=== PATIENT | female | born 1995 | race Caucasian/White ===

== ENCOUNTER 2019-01-02 16:15 | Outpatient (CLI) | payer OTHER ==
[~2019-01-02] VITALS: Ht 160 cm; Wt 63.8 kg
[2019-01-02 16:25] VITALS: Ht 160 cm; Wt 63.8 kg
--- NOTE | 2019-01-02 18:17 | PN ---
Triage Information Date/Time Subjective: 23 year-old G1 at 37.3 weeks gestation presents with complaints of contractions. Objective: Vitals: 123/60 General: No apparent distress Abdomen: Gravid SVE: 50/-2 by RN BPP 02/02 Assessment/Plan: 1. contractions-if exam unchanged, patient may be discharged to home Reason for visit: Uterine contractions Weeks of Gestation 37.3 /Para 1 MILESTONE,DANIELA FONTENOT Jan 02, 2019 18:17
--- NOTE | 2019-01-02 18:20 | TRIAGE ---
OB Triage Datetime Report Generated by CPN: 01/02/2019 18:20 Datetime: 01/02/2019 18:14 Stage of : OB Triage Maternal Assessment Level of Consciousness: Keenly Alert, Responsive DTR's/Clonus: DTRs 1+ Headache: Denies Breath Sounds, Left: Clear and Equal Breath Sounds, Right: Clear and Equal Nausea/Vomiting: Denies RUQ Epigastric Pain: Denies Monitor Mode: External Pattern: Normal: <= 5 Contractions in 10 Minutes Resting Tone [place]: Relaxed Heart Rate FHR Baseline Rate: 125 Monitor Mode: External US Variability: Moderate 6-25 bpm Accelerations: 15X15 Decelerations: None Category: Category I Pain Assessment Pain Scale: 7 Pain Presence: Intermittent Pain Type: Cramping Pain Location: Back Pain Goal: 3 Membrane Status: Intact Datetime: 01/02/2019 17:54 Vaginal Exam Dilatation (cms): 2.0 Effacement (%): 50 Station: -2 Exam By: WES EDGE Vaginal Bleeding: None Cervix, Consistency: Soft Cervix, Position: Posterior Presentation 'A': Cephalic Datetime: 01/02/2019 17:36 Stage of : OB Triage Maternal Assessment Level of Consciousness: Keenly Alert, Responsive DTR's/Clonus: DTRs 1+ Headache: Denies Breath Sounds, Left: Clear and Equal Breath Sounds, Right: Clear and Equal Nausea/Vomiting: Denies RUQ Epigastric Pain: Denies Labor Evaluation Frequency: X2 Monitor Mode: External Duration (sec)2399: 50 Quality: Mild Pattern: Normal: <= 5 Contractions in 10 Minutes Resting Tone [place]: Relaxed Heart Rate FHR Baseline Rate: 125 Monitor Mode: External US Variability: Moderate 6-25 bpm Accelerations: 15X15 Decelerations: None Category: Category I Pain Assessment Pain Scale: 7 Pain Presence: Intermittent Pain Type: Cramping Pain Location: Back Pain Goal: 3 Membrane Status: Intact Datetime: 01/02/2019 17:29 Stage of : OB Triage Datetime: 01/02/2019 16:37 Maternal Assessment Level of Consciousness: Keenly Alert, Responsive DTR's/Clonus: DTRs 1+ Headache: Denies Blurred Vision: No Respiratory Effort: Unlabored Breath Sounds, Left: Clear and Equal Breath Sounds, Right: Clear and Equal Nausea/Vomiting: Denies RUQ Epigastric Pain: Denies Facial Edema: None Labor Evaluation Frequency: X2 Monitor Mode: External Duration (sec)2399: 50 Quality: Mild Pattern: Normal: <= 5 Contractions in 10 Minutes Resting Tone [place]: Relaxed Heart Rate FHR Baseline Rate: 125 Monitor Mode: External US Variability: Moderate 6-25 bpm Accelerations: 15X15 Decelerations: None Category: Category I Pain Assessment Pain Scale: 7 Pain Presence: Intermittent Pain Type: Cramping Pain Location: Back Pain Goal: 3 Membrane Status: Intact Datetime: 01/02/2019 16:18 Vaginal Exam Dilatation (cms): 2.0 Effacement (%): 50 Station: -2 Exam By: WES EDGE Vaginal Bleeding: None Cervix, Consistency: Soft Cervix, Position: Posterior Presentation 'A': Cephalic Datetime: 01/02/2019 16:10 Assessment Type: Triage Maternal Assessment Level of Consciousness: Keenly Alert, Responsive DTR's/Clonus: DTRs 2+; No Clonus Headache: Denies Blurred Vision: No Respiratory Effort: Unlabored; Regular Rhythm; Equal Expansion Breath Sounds, Left: Clear and Equal Breath Sounds, Right: Clear and Equal Nausea/Vomiting: Denies RUQ Epigastric Pain: Denies Lower Extremities Edema: None Degree: None Upper Extremities Edema: None Degree: None Facial Edema: None Fall Risk Assessment History of Falling: (0) No Secondary Diagnosis: (0) No Ambulatory Aid: (0) Bedrest/Nurse Assist IV Therapy: (0) No Gait: (0) Normal/Bedrest/Immobile Mental Status: (0) Oriented to Own Ability Fall Score: 0 Fall Risk Score Definition: No Risk: No action required Datetime: 01/02/2019 16:00 Time of Arrival: 01/02/2019 16:00 EGA: 37.3 Arrived By: Ambulatory Arrived From: Home Chief Complaint: PT CAME IN C/O UC'S SINCE LAST NIGHT Q 6 MIN Movement: Present Contractions: Irregular Time Contractions Began: 01/01/2019 21:00 Contractions: 6 MIN Rupture of Membranes: Denies Vaginal Discharge: Denies Recent Sexual Intercouse: Denies Abdominal Trauma: Not Applicable Additional Patient Complaints: NONE Time Provider Notified: 01/02/2019 16:27 Provider Notified: MILESTONE Initial Plan: MONITOR, VE AND BPP
== END 2019-01-02 18:15 | disposition home or self-care (01) ==
LOC: OBT 16:15 → L-D 16:16 → OBT 18:15
PROVIDERS: ATTEND Obstetrics & Gynecology
DX: O62.9 Abnormality of forces of labor, unspecified (principal); Z3A.37 37 weeks gestation of pregnancy
CPT/HCPCS: 76818

== ENCOUNTER 2019-01-13 12:52 | Outpatient (CLI) | payer OTHER ==
[~2019-01-13] VITALS: Ht 157.5 cm; Wt 62.6 kg
[2019-01-13] MEDS ORDERED: PNV11TAB PO (13:12)
[2019-01-13 13:14] VITALS: BP 109/62; PULSE 71; RESP 19; Ht 157.5 cm; Wt 62.6 kg
--- NOTE | 2019-01-13 15:21 | TRIAGE ---
OB Triage Datetime Report Generated by CPN: 01/13/2019 15:20 Datetime: 01/13/2019 14:52 Labor Evaluation Frequency: IRREGULAR Monitor Mode: External Duration (sec)2399: 50-100 Quality: Mild Pattern: Normal: <= 5 Contractions in 10 Minutes Resting Tone [place]: Relaxed Heart Rate FHR Baseline Rate: 130 Monitor Mode: External US Variability: Moderate 6-25 bpm Accelerations: 15X15 Decelerations: None Category: Category I Datetime: 01/13/2019 14:38 Vaginal Exam Dilatation (cms): 2.0 Effacement (%): 60 Station: -2 Exam By: Lucia EID Datetime: 01/13/2019 13:20 Assessment Type: Triage Maternal Assessment Level of Consciousness: Keenly Alert, Responsive DTR's/Clonus: DTRs 2+; No Clonus Headache: Denies Blurred Vision: No Respiratory Effort: Unlabored; Regular Rhythm; Equal Expansion Breath Sounds, Left: Clear and Equal Breath Sounds, Right: Clear and Equal Nausea/Vomiting: Denies RUQ Epigastric Pain: Denies Lower Extremities Edema: None Degree: None Upper Extremities Edema: None Degree: None Facial Edema: None Fall Risk Assessment History of Falling: (0) No Secondary Diagnosis: (0) No Ambulatory Aid: (0) Bedrest/Nurse Assist IV Therapy: (0) No Gait: (0) Normal/Bedrest/Immobile Mental Status: (0) Oriented to Own Ability Fall Score: 0 Fall Risk Score Definition: No Risk: No action required Datetime: 01/13/2019 13:19 Time of Arrival: 01/13/2019 12:47 EGA: 39.0 Arrived By: Ambulatory Arrived From: Home Chief Complaint: lost mucos plug Movement: Present Contractions: Irregular Rupture of Membranes: Denies Vaginal Bleeding: None Vaginal Discharge: Denies Recent Sexual Intercouse: Denies Abdominal Trauma: Not Applicable Patient Complaints: Other Time Provider Notified: 01/13/2019 14:54 Provider Notified: DR CUMMINS Initial Plan: nst bpp Datetime: 01/02/2019 16:10 Fall Score: 0 Fall Risk Score Definition: No Risk: No action required Datetime: 01/02/2019 16:00 EGA: 37.3
--- NOTE | 2019-01-13 21:42 | PN ---
Triage Information Date/Time 01/13/19 Reason for visit: Uterine contractions Weeks of Gestation 39w /Para Diabetes: none Hypertention: none Objective Vital Signs Date Temp Pulse Resp B/P (MAP) Pulse Ox O2 O2 Flow FiO2 Time Delivery Rate 01/13/19 98.4 71 19 109/62 Room Air 13:14 (78) Heart Rate: 140's Heart Rate Comments CAT I Exam VE 2cm no change from last visit Results/Medications Imaging Results BPp 02/02 BASIA 9.2 Disposition: Discharge Assessment/Plan A IUP 39w latent phase P discharge home with routine labor instructions REGINALDO CUMMINS MD Jan 13, 2019 21:42
== END 2019-01-13 15:10 | disposition home or self-care (01) ==
LOC: OBT 12:52 → L-D 12:53 → OBT 15:10
PROVIDERS: ATTEND Obstetrics & Gynecology
DX: O62.9 Abnormality of forces of labor, unspecified (principal); Z3A.39 39 weeks gestation of pregnancy
CPT/HCPCS: 76818; Z7500; G0463

== ENCOUNTER 2019-01-19 17:54 | Inpatient (IN) | payer OTHER ==
[~2019-01-19] VITALS: Ht 160 cm; Wt 62.7 kg
[~2019-01-19 17:54] MED LIST: PNV11TAB PO
[2019-01-19 18:30] VITALS: Ht 160 cm; Wt 62.7 kg
[2019-01-19 18:31] VITALS: BP 114/75; PULSE 87; RESP 19
[2019-01-19] MEDS ORDERED: LACTATED RINGER'S 1,000 ML IV PRN (22:50)
--- NOTE | 2019-01-19 22:50 | TRIAGE ---
OB Triage Datetime Report Generated by CPN: 01/19/2019 22:50 Datetime: 01/19/2019 19:00 Stage of : OB Triage Labor Evaluation Frequency: 7-8 Monitor Mode: External Duration (sec)2399: 100-120 Quality: Moderate Pattern: Normal: <= 5 Contractions in 10 Minutes Resting Tone [place]: Relaxed Heart Rate FHR Baseline Rate: 135 Monitor Mode: External US Variability: Moderate 6-25 bpm Accelerations: 15X15 Decelerations: Early Category: Category I Pain Assessment Pain Scale: 10 Pain Presence: Intermittent Pain Type: Contraction Pain Location: Abdomen Pain Relief Measures: Comfort Measures Datetime: 01/19/2019 18:37 Vaginal Exam Dilatation (cms): 3.0 Effacement (%): 80 Station: -2 Exam By: bjacobo Membrane Status: Intact Vaginal Bleeding: None Cervix, Consistency: Soft Cervix, Position: Midposition Presentation 'A': Cephalic Datetime: 01/19/2019 18:35 Assessment Type: Triage Maternal Assessment Level of Consciousness: Keenly Alert, Responsive DTR's/Clonus: DTRs 2+ Headache: Denies Blurred Vision: No Respiratory Effort: Unlabored; Regular Rhythm; Equal Expansion Breath Sounds, Left: Clear and Equal Breath Sounds, Right: Clear and Equal Nausea/Vomiting: Denies RUQ Epigastric Pain: Denies Lower Extremities Edema: None Degree: None Upper Extremities Edema: None Degree: None Facial Edema: None Fall Risk Assessment History of Falling: (0) No Secondary Diagnosis: (0) No Ambulatory Aid: (0) Bedrest/Nurse Assist IV Therapy: (0) No Gait: (0) Normal/Bedrest/Immobile Mental Status: (0) Oriented to Own Ability Fall Score: 0 Fall Risk Score Definition: No Risk: No action required Datetime: 01/19/2019 18:33 Time of Arrival: 01/19/2019 17:48 EGA: 39.6 Arrived By: Ambulatory Arrived From: Dr. Drake Movement: Present Contractions: Regular Time Contractions Began: 01/18/2019 22:00 Rupture of Membranes: Denies Vaginal Bleeding: None Vaginal Discharge: Present Recent Sexual Intercouse: Denies Abdominal Trauma: Not Applicable Patient Complaints: Contractions Time Provider Notified: 01/19/2019 22:35 Provider Notified: Dr. Alexander Initial Plan: [place], EFM, V/S, VE Datetime: 01/13/2019 13:20 Fall Score: 0 Fall Risk Score Definition: No Risk: No action required Datetime: 01/13/2019 13:19 EGA: 39.0 Datetime: 01/02/2019 16:10 Fall Score: 0 Fall Risk Score Definition: No Risk: No action required Datetime: 01/02/2019 16:00 EGA: 37.3
[2019-01-19] MEDS ORDERED: BUTORPHANOL 2 MG INJ IV PRN (23:00)
[2019-01-19] MEDS ORDERED: AMPICILLIN 2 GM/NS (PMX) 100 ML IV ONE (23:00)
[2019-01-19] MEDS ORDERED: OXYTOCIN 30 UNITS/LR 500 ML IV SCH ×3 (23:00)
[2019-01-19] MEDS ORDERED: METHYLERGONOVINE 0.2 MG INJ IM PRN (23:00)
[2019-01-19] MEDS ORDERED: LIDOCAINE 1% (MPF) 30 ML INJ INJ PRN (23:00)
[2019-01-19] MEDS ORDERED: MISOPROSTOL 200 MCG TAB PR PRN (23:00)
[2019-01-19] MEDS ORDERED: CARBOPROST 250 MCG INJ IM PRN (23:00)
[2019-01-19] MEDS ORDERED: OXYTOCIN 30 UNITS/LR 500 ML IV PRN (23:00)
[2019-01-19] MEDS ORDERED: IBUPROFEN 600 MG TAB PO PRN (23:00)
--- NOTE | 2019-01-20 00:03 | PREAC ---
Date/Time of Note Date/Time of Note DATE: 01/20/19 TIME: 00:03 Anesthesia Eval and Record Evaluation Time Pre-Procedure Interview DATE: 01/20/19 TIME: 00:03 Age 23 Sex female NPO: 8 hrs Preoperative diagnosis g1 Planned procedure labor epidural Past Medical History Past Medical History: None Surgery & Anesthesia Issues No known issue Meds Anticoagulation: No Beta Gayatri within 24 hr: No Reason Beta Gayatri not given: Pt. not on B-Gayatri Reported Medications [id number] ( 19) 1 Each Tablet, 1 TAB PO DAILY, TAB 01/13/19 Current Medications Lactated Ringer's 1,000 ml @ 125 mls/hr Q8H IV ; Start 01/19/19 at 22:50 Ampicillin 50 ml @ 100 mls/hr Q4H IV ; Start 01/20/19 at 03:00 Butorphanol Tartrate (Stadol) 2 mg Q2H PRN IV .PAIN SCALE 6-10; Start 01/19/19 at 23:00 Lidocaine (Xylocaine 1% (Mpf)) 30 ml ONCE PRN INJ .EPISIOTOMY; Start 01/19/19 at 23:00 Oxytocin/Lactated Ringer's 500 ml @ 500 mls/hr ONCE POST IV ; Start 01/19/19 at 23:00 Oxytocin/Lactated Ringer's 500 ml @ 125 mls/hr POST IV ; Start 01/19/19 at 23:00 Ibuprofen (Motrin) 600 mg ONCE PRN PO .PAIN 1-5; Start 01/19/19 at 23:00 Lactated Ringer's 1,000 ml @ 2,000 mls/hr Q30M PRN IV .ANESTHESIA; Start 01/19/19 at 22:50 Oxytocin/Lactated Ringer's 500 ml @ 0 mls/hr ONCE PRN IV .VAGINAL BLEEDING; Start 01/19/19 at 23:00 Methylergonovine Maleate (Methergine) 0.2 mg ONCE PRN IM .VAGINAL BLEEDING; Start 01/19/19 at 23:00 Carboprost Tromethamine (Hemabate) 250 mcg ONCE PRN IM .VAGINAL BLEEDING; Start 01/19/19 at 23:00 Misoprostol (Cytotec) 1,000 mcg ONCE PRN MA .VAGINAL BLEEDING; Start 7/25/19 at 23:00 Oxytocin/Lactated Ringer's 500 ml @ 0 mls/hr FOR AUGMENTATION IV ; Start 01/19/19 at 23:00 Meds reviewed: Yes Allergies Coded Allergies: No Known Allergy (Unverified , 01/19/19) Allergies Reviewed: Yes Labs/Studies Labs Reviewed: Reviewed by anesthesiologist test: Positive Pre-procedure Exam Last vitals Vital Signs Date Temp Pulse Resp B/P (MAP) Pulse Ox O2 O2 Flow FiO2 Time Delivery Rate 01/19/19 97.4 87 19 114/75 Room Air 18:31 (88) Airway: Adequate mouth opening, Adequate thyromental dist Mallampati: Mallampati II Teeth: Normal Lung: Normal Heart: Normal ASA Physical Status ASA physical status: 1 Emergency: None Planned Anesthetic Neuraxial: Epidural Pre-operative Attestations Prior to commencing anesthesia and surgery, the patient was re-evaluated, there was verification of: *The patient's identity *The results of appropriate recent lab work and preoperative vital signs *The above evaluation not changing prior to induction *Anesthetic plan, risk benefits, alternative and complications discussed with patient/family; questions answered; patient/family understands, accepts and wishes to proceed. KEKE PAK Jan 20, 2019 00:03
[2019-01-20] MEDS ORDERED: KETOROLAC 30 MG INJ IV PRN (00:30)
[2019-01-20] MEDS ORDERED: ONDANSETRON 4 MG INJ IV PRN (00:30)
[2019-01-20] MEDS ORDERED: HYDROmorphONE 0.5 MG/0.5 ML SYG IV PRN ×2 (00:30)
[2019-01-20] MEDS ORDERED: NALOXONE (0.4 MG/ML) INJ IV PRN (00:30)
[2019-01-20] MEDS ORDERED: FENTAnyl 2MCG/ML-ROPIV 0.2% 100 ML BAG EPI SCH (00:30)
[2019-01-20] MEDS ORDERED: DIPHENHYDRAMINE 50 MG INJ IV PRN (00:30)
[2019-01-20] MEDS: LACTATED RINGER'S 1,000 ML IV SCH ×3 (01:26→14:40)
[2019-01-20] MEDS ORDERED: AMPICILLIN 1 GM/NS (PMX) 50 ML IV SCH (03:00)
[2019-01-20] MEDS ORDERED: DEXTROSE 5%-LR 1,000 ML IV SCH (14:00)
[2019-01-20] MEDS ORDERED: MINERAL OIL LIGHT 10 ML VIAL TOP ONE (15:00)
--- NOTE | 2019-01-20 16:18 | HP ---
Date/Time of Note Date/Time of Note DATE: 01/20/19 TIME: 16:12 OB - History Hx of Present Free Text/Dictation 22 y.o primigravida at 40w with c/o uc's q7min apart . initial VE 380/-2 CAT I tracing. admitted for fexpectant management. Chief Complaint: uc's Estimated Due Date: Jan 20, 2019 : 1 Para: 0 Spontaneous : 0 Therapeutic : 0 Care: Other Ultrasounds: Other Obstetrical Complications: None Medical Complications: None Past Family/Social History * Past Medical, Surgical, Family and Obstetric Histories reviewed from chart. Blood Type: O+ Rubella: immune RPR/VDRL: Negative GBS Status: Negative HBsAG: Negative OB Admission Exam Vital Signs Vital Signs Vital Signs Date Temp Pulse Resp B/P (MAP) Pulse Ox O2 O2 Flow FiO2 Time Delivery Rate 01/19/19 97.4 87 19 114/75 Room Air 18:31 (88) Physical Exam Cervical Dilatation: 3cm Effacement: Other (80%) Station: -2 Membranes: Intact Amniotic Fluid: Unevaluable Heart Rate: 140's Decelerations: No Decelerations Varibility: Moderate Contractions on Admission: 6-10 Minutes Apart Intensity: Moderate Last 72 hours Lab Results CBC & BMP 01/20/19 00:15 OB Assessment/Plan Other Assessment: A IUP 40w in labor P expectant management Plan: Expectant Management REGINALDO CUMMINS MD Jan 20, 2019 16:18
--- NOTE | 2019-01-20 16:23 | QN ---
Documentation Comment called for poss ARM clear fluid already leaking VE /2 still bulging ARM ruptured clear IUPC inserted without any problem REGINALDO CUMMINS MD Jan 20, 2019 16:23
--- NOTE | 2019-01-20 19:24 | LDN ---
Date/Time of Note Date/Time of Note DATE: 01/20/19 TIME: 19:22 Delivery Summary of normal female Weeks of Gestation 40w Placenta Delivered: Spontaneously, Intact & Complete Meconium: none Episiotomy: Yes Indication for episiotomy expected laceration Perineal laceration: 0 Laceration repair: 00ch gut Anesthesia type: Epidural Estimated blood loss: 200 Sponge & Needle done & correct: Yes All needle counts correct: Yes Any foreign bodies felt in the: No Infant Delivery Information Sex Infant Sex: female Apgars 1 Minute: 9 5 Minute: 9 Suctioning Nose & mouth suctioned at ivy: Yes Delee suction performed: Yes Umbilical Cord Umbilical cord with: 3 Vessels Cord presentations: no nuchal cord Cord Blood was obtained: Yes Mother & Baby Disposition Disposition Mom & Baby to Maternity; Good: Yes Mom transferred to: Other Baby to NICU: No () REGINALDO CUMMINS MD Jan 20, 2019 19:24
[2019-01-20 20:45] VITALS: BP 133/70; PULSE 74; RESP 19
[2019-01-20] MEDS ORDERED: OXYTOCIN 30 UNITS/LR 500 ML IV PRN (21:30)
[2019-01-20] MEDS ORDERED: MISOPROSTOL 200 MCG TAB PR PRN (21:30)
[2019-01-20] MEDS ORDERED: OXYCODONE/ASPIRIN (4.88/325) TAB PO PRN ×2 (21:30)
[2019-01-20] MEDS ORDERED: CARBOPROST 250 MCG INJ IM PRN (21:30)
[2019-01-20] MEDS ORDERED: METHYLERGONOVINE 0.2 MG INJ IM PRN (21:30)
[2019-01-20] MEDS ORDERED: ZOLPIDEM 5 MG TAB PO PRN (21:30)
[2019-01-20] MEDS: WITCH HAZEL/GLYCERIN PAD PR PRN (22:20)
[2019-01-20] MEDS: BENZOCAINE 20% 56 ML SPRAY TOP PRN (22:20)
[2019-01-20] MEDS: LANOLIN HPA 1 PKT TOP PRN (22:21)
[2019-01-21] MEDS: IBUPROFEN 600 MG TAB PO SCH ×4 (00:02→17:30)
[2019-01-21 01:00] VITALS: BP 117/66; PULSE 65; RESP 18
[2019-01-21 03:54] VITALS: BP 112/69; PULSE 68; RESP 17
[2019-01-21 07:50] VITALS: BP 108/59; PULSE 67; RESP 16
[2019-01-21] MEDS: SENNA/DOCUSATE NA (8.6MG/50MG) TAB PO SCH ×2 (09:22→21:28)
[2019-01-21 15:35] VITALS: BP 120/69; PULSE 73; RESP 18
[2019-01-21 19:35] VITALS: BP 103/55; PULSE 68; RESP 19
[2019-01-22] MEDS: IBUPROFEN 600 MG TAB PO SCH ×3 (00:06→12:00)
[2019-01-22 03:35] VITALS: BP 117/61; PULSE 72; RESP 19
[2019-01-22 07:55] VITALS: BP 111/61; PULSE 68; RESP 16
[2019-01-22] MEDS: SENNA/DOCUSATE NA (8.6MG/50MG) TAB PO SCH (08:20)
[2019-01-22] MEDS: LANOLIN HPA 1 PKT TOP PRN (08:21)
[2019-01-22] MEDS ORDERED: DIPHTH/TET/ACEL PERTUSS (ADULT) 0.5 ML VIAL IM* ONE (09:00)
--- NOTE | 2019-01-22 10:57 | PAC ---
Date/Time of Note Date/Time of Note DATE: 01/22/19 TIME: 10:57 Post-Anesthesia Notes Post-Anesthesia Note Last documented vital signs Vital Signs Date Temp Pulse Resp B/P (MAP) Pulse Ox O2 O2 Flow FiO2 Time Delivery Rate 01/22/19 98.2 68 16 111/61 Room Air 07:55 (78) Activity: WNL Respiratory function: WNL Cardiovascular function: WNL Mental status: Baseline Pain reasonably controlled: Yes Hydration appropriate: Yes Nausea/Vomiting absent: Yes KEKE PAK Jan 22, 2019 10:57
[2019-01-22] MEDS: WITCH HAZEL/GLYCERIN PAD PR PRN (12:01)
[2019-01-22] MEDS: BENZOCAINE 20% 56 ML SPRAY TOP PRN (12:01)
--- NOTE | 2019-01-22 12:43 | QN ---
Documentation Comment PPD#2 is stable afebrile tolerates diet No VB +BM +voids VS stable Gen NAD Abd soft NT ND Genitalia No blood at perineum --->Discharge plan ADRYAN POWELL M.D. Jan 22, 2019 12:43
--- NOTE | 2019-01-22 12:44 | DS ---
Date/Time of Note Date/Time of Note DATE: 01/22/19 TIME: 12:44 Discharge Summary Admission/Discharge Info Admit Date/Time Jan 19, 2019 at 22:50 Discharge Date/Time 01/22/2019 Discharge Diagnosis Patient Condition: Good Hospital Course Uneventful Home Meds Reported Medications [id number] ( 19) 1 Each Tablet, 1 TAB PO DAILY, TAB 01/13/19 Primary Care Provider Not On Staff Doctor ADRYAN POWELL M.D. Jan 22, 2019 12:44
--- NOTE | 2019-01-23 11:05 | QN ---
Documentation Comment late entry note for 01/21/2019 PPD#1 patient is stable afebrile tolerates diet No VB +voids VS stable VS - Last 72 Hours, by Label Date Temp Pulse Resp B/P (MAP) Pulse Ox O2 O2 Flow FiO2 Time Delivery Rate 01/22/19 98.2 68 16 111/61 Room Air 07:55 (78) 01/22/19 98.0 72 19 117/61 Room Air 03:35 (79) 01/21/19 97.9 68 19 103/55 Room Air 19:35 (71) 01/21/19 98.3 73 18 120/69 Room Air 15:35 (86) 01/21/19 97.9 67 16 108/59 Room Air 07:50 (75) 01/21/19 97.6 68 17 112/69 Room Air 03:54 (83) 01/21/19 97.8 65 18 117/66 Room Air 01:00 (83) 01/20/19 99.3 74 19 133/70 Room Air 20:45 (91) Hematology - 72 Hrs Test 01/21/19 06:45 Hematocrit 32.0 % (37.0-47.0) L Hemoglobin 10.7 g/dl (12.0-16.0) L Mean Corpuscular Hemoglobin 30.5 pg (29.0-33.0) Mean Corpuscular Hemoglobin Concent 33.4 g/dl (32.0-37.0) Mean Corpuscular Volume 91.2 fl (82.0-101.0) Mean Platelet Volume 11.4 fl (7.4-10.4) H Platelet Count 153 10^3/UL (140-415) # Red Blood Count 3.51 10^6/ul (4.20-5.40) L Red Cell Distribution Width 14.5 % (11.5-14.5) White Blood Count 13.7 10^3/ul (4.8-10.8) #H Abd soft NT ND Genitalia No blood at perineum Ext NT A/P continue with routine care AUGUSTO ARROYO MD Jan 23, 2019 11:05
--- NOTE | 2019-01-23 14:09 | DELSUM ---
Delivery Summary A-C Datetime Report Generated by CPN: 01/23/2019 14:09 DELIVERY PERSONNEL Social Science Research Assistant: [place], [place] MATERNAL INFORMATION Delivery Anesthesia: Epidural Medications in Delivery: lr 500ml pitocin 30 units Delivery QBL (ml): 200 Placenta Cultured: No Maternal Complications: None LABOR SUMMARY EDC: 01/20/2019 00:00 No. Babies in Womb: 1 Attempted: No Labor Anesthesia: Epidural LABOR INFORMATION Reason for Induction: Not Applicable Onset of Labor: 01/19/2019 14:00 Complete Dilatation: 01/20/2019 15:15 Group B Beta Strep: Negative Antibiotics # of Doses: 0 Steroids Given: None Reason Steroids Not Administered: Not Applicable MEMBRANES Membranes Rupture Method: Artificial Rupture of Membranes: 01/20/2019 13:17 Length of Rupture (hr): 5.28 Amniotic Fluid Color: Clear Amniotic Fluid Amount: Moderate Amniotic Fluid Odor: Normal STAGES OF LABOR Stage 1 hr: 25 Stage 1 min: 15 Stage 2 hr: 3 Stage 2 min: 19 Stage 3 hr: 0 Stage 3 min: 4 Total Time in Labor hr: 28 Total Time in Labor min: 38 VAGINAL DELIVERY Episiotomy: Median Laceration Extension: N/A Laceration Type: None Laceration Repair: Not Applicable Initial Vag Sponge Count: 10 Final Vag Sponge Count: 10 Initial Vag Sharps Count: 2 Final Vag Sharps Count: 2 Sponge Count Correct: Yes; Vaginal Sweep Performed Sharps Count Correct: Yes BABY A INFORMATION Delivery Date/Time: 01/20/2019 18:34 Method of Delivery: Vaginal Born in Route : No : N/A Forceps: N/A Vacuum Extraction: N/A Shoulder Dystocia : N/A SHOULDER DYSTOCIA BABY A Infant Delivery Date/Time: 01/20/2019 18:34 PRESENTATION/POSITION BABY A Presentation: Cephalic Cephalic Presentation: Vertex Vertex Position: Left Occipital Anterior Breech Presentation: N/A PLACENTA INFORMATION BABY A Placenta Delivery Time : 01/20/2019 18:38 Placenta Method of Delivery: Spontaneous Placenta Status: Delivered SCORES BABY A Heart Rate 1 min: >100 bpm Resp Effort 1 min: Good Cry Reflex Irritability 1 min: Cough/Sneeze/Pulls Away Muscle Tone 1 min: Active Motion Color 1 min: Body [place], Extremit Blue Resuscitation Effort 1 min: Tactile Stimulation SCORE 1 MIN: 9 Heart Rate 5 min: >100 bpm Resp Effort 5 min: Good Cry Reflex Irritability 5 min: Cough/Sneeze/Pulls Away Muscle Tone 5 min: Active Motion Color 5 min: Body [place], Extremit Blue Resuscitation Effort 5 min: Tactile Stimulation SCORE 5 MIN: 9 INFANT INFORMATION BABY A Gestational Age at Delivery: 40.0 Gestational Status: Full Term- 39- 40.6 Weeks Outcome : Liveborn, with signs of life Infant Condition : Stable Infant Sex: Female IDENTIFICATION/MEDS BABY A ID Band Number: [id number] ID Band Location: Right Leg; Left Arm Sensor Applied: Yes Sensor Number: [id number] Sensor Location : Cord Clamp Vitamin K Given : Not Given Erythromycin Given: Not Given WEIGHT/LENGTH BABY A Infant Birthweight (gm): 3505 Weight (lb): 7 Weight (oz): 12 Infant Length (in): 18.50 Infant Length (cm): 46.99 CORD INFORMATION BABY A No. Cord Vessels: 3 Nuchal Cord : N/A Cord Blood Taken: Yes Banking/Donate Info: NO Infant Suction: Mouth; Nose ASSESSMENT BABY A Complications: Multiple Variable Decels Infant Complications- Other: AMNIOINFUSION FOR VARIABLES Physical Findings at Delivery: Within Normal Limits Infant Respirations: Appears Normal Stretching Machine Operator/ALS Called : No Infant Care By: Oswaldo taylorc Transferred To: Remains with Mother
== END 2019-01-22 13:15 | disposition home or self-care (01) | DRG 807 ==
LOC: OBT 17:54 → L-D 17:54 → OBT 22:50 → L-D 22:50 → PP1 01-20 21:02
PROVIDERS: ADMIT Obstetrics & Gynecology; ATTEND Obstetrics & Gynecology
PROC: 10E0XZZ Delivery of Products of Conception, External Approach (ICD-10-PCS; principal; 2019-01-20)
PROC: 0W8NXZZ Division of Female Perineum, External Approach (ICD-10-PCS; 2019-01-20)
PROC: 10907ZC Drainage of Amniotic Fluid, Therapeutic from Products of Conception, Via Natural or Artificial Opening (ICD-10-PCS; 2019-01-20)
PROC: 10H073Z Insertion of Monitoring Electrode into Products of Conception, Via Natural or Artificial Opening (ICD-10-PCS; 2019-01-20)
PROC: 4A1H7CZ Monitoring of Products of Conception, Cardiac Rate, Via Natural or Artificial Opening (ICD-10-PCS; 2019-01-20)
DX: O80 Encounter for full-term uncomplicated delivery (principal); Z37.0 Single live birth; Z3A.40 40 weeks gestation of pregnancy
CPT/HCPCS: 62322; 76815; 76818; 80307; 85025; 85610; 85730; 86592; 86850; 86900; 86901; 87340; G0463; J2590; J3010; J7120; J7121